=== PATIENT | male | born 1995 | race African-American/Black ===

== ENCOUNTER → 2017-01-06 | Outpatient (CLI) | payer BC ==
--- NOTE | 2017-01-06 14:39 | KCIC ---
CT head without intravenous contrast History: Head injury, struck head on metal pole 3 weeks ago, headache and eye pain. Comparison: None. Technique: Axial images are obtained of the head from the skull base through the vertex without IV contrast. Exposure: One or more of the following individualized dose reduction techniques were utilized for this examination: 1. Automated exposure control 2. Adjustment of the mA and/or kV according to patient size 3. Use of iterative reconstruction technique Findings: The ventricles are appropriate in size, shape, and location for the patient's age. No obvious intracranial mass, mass-effect, midline shift, hemorrhage or obvious acute infarction is identified. Basilar cisterns are patent. Bone windows demonstrate no acute calvarial abnormality. The visualized paranasal sinuses appear clear. Impression: 1. No acute intracranial process. Electronically signed by: Ric Burch MD (01/06/2017 2:35 PM) [place] [id number]
== END ==
LOC: KCIC CT 14:22
PROVIDERS: ATTEND Emergency Medicine
DX: S09.90XD Unspecified injury of head, subsequent encounter (principal); X58.XXXD Exposure to other specified factors, subsequent encounter
CPT/HCPCS: 70450

== ENCOUNTER 2017-04-28 22:10 | Emergency (ER) | payer BC | END 2017-04-28 22:37 | disposition left against medical advice (07) | LOC: ER 22:10 | DX: J02.9 Acute pharyngitis, unspecified (principal); Z53.21 Procedure and treatment not carried out due to patient leaving prior to being seen by health care provider ==

== ENCOUNTER 2017-06-16 20:04 | Emergency (ER) | payer BC | END 2017-06-16 20:20 | disposition left against medical advice (07) | LOC: ER 20:04 | DX: I10 Essential (primary) hypertension (principal); Z53.21 Procedure and treatment not carried out due to patient leaving prior to being seen by health care provider ==